=== PATIENT | female | born 1980 ===

== ENCOUNTER 2025-01-27 09:43 | Outpatient (CLI) | payer BC | END 2025-01-27 09:44 | disposition home or self-care (01) | LOC: CSHMAMMO 09:43 | PROVIDERS: ATTEND Physician Assistant | DX: R92.8 Other abnormal and inconclusive findings on diagnostic imaging of breast (principal); R92.333 Mammographic heterogeneous density, bilateral breasts | CPT/HCPCS: G0279 ==